=== PATIENT | female | born 1945 | race Caucasian/White ===

== ENCOUNTER → 2024-10-07 11:55 | Outpatient (CLI) | payer MEDICARE, SELFPAY ==
--- NOTE | 2024-10-07 11:56 | DI.CT.S_ITS ---
PROCEDURE: CT SINUS SCREEN WO CON INDICATIONS: malignant melanoma of nasal cavity TECHNIQUE: Noncontrast 3.0 mm axial images acquired from the frontal sinuses to the mid- sella, with coronal and sagittal reformats. For radiation dose reduction, the following was used: automated exposure control, adjustment of mA and/or kV according to patient size. COMPARISON: None. FINDINGS: Image quality: Excellent. Sinuses: There is significant soft tissue density within the left maxillary sinus extending to the ethmoid air cells as well as frontal sinus and sphenoid sinus. It appears more masslike in the anterior aspect of the left maxillary sinus. Somewhat frothy appearance of opacification is present surrounding the inferior right nasal turbinates. Inferior left nasal turbinate is not visualized possibly secondary to resection. Ostiomeatal Complexes: There is complete occlusion expansion of the left ostiomeatal complex. Miscellaneous: Visualized intra-orbital contents are normal. No david bullosa or paradoxical turbinate curvature. No nasal septal deviation. There is a thickened appearance the left lateral maxillary sinus barba. There is osseous thinning within the anterior left maxillary sinus wall. There is expansion of left nostril with patchy areas of soft tissue density. IMPRESSION: Diffuse appearance of soft tissue density within the sinuses most notably on the left. Masslike appearance is present in the anterior aspect of the left maxillary sinus with thinning of the anterior wall. In addition, patchy areas of opacity are present in the left nostril. While portions are likely [employer] mucosal thickening within the left spinous system, the left nostril and anterior aspect of the left mass very sinus raise suspicion for underlying malignancy. Dictated by: Sharmin Salcedo M.D. on 10/08/2024 at 19:58 Approved by: Sharmin Salcedo M.D. on 10/08/2024 at 20:03
--- NOTE | 2024-10-07 11:57 | DI.CT.S_ITS ---
PROCEDURE: CT SOFT TISSUE NECK WO CON INDICATIONS: malignant melanoma of nasal cavity TECHNIQUE: Non-contrast 3.0 mm axial sections acquired from the sella to the aortic arch. Additional oblique axial 3.0 mm sections acquired through the pharynx. 3 mm thick coronal and sagittal reformats were generated. For radiation dose reduction, the following was used: automated exposure control. COMPARISON: [facility], MR, MR ORBITS FACE NECK WO/W CON, 10/07/2024, 12:21. [facility], CT, CT SINUS SCREEN WO CON, 10/07/2024, 12:10. [facility], [place], [place] PET [place] FUSION WHOLE BODY, 09/30/2024, 8:31. Outside Facility, [place], [place] PET CT FUSION WHOLE BODY, 08/05/2019, 16:18. Outside Facility, [place], [place] PET CT FUSION WHOLE BODY, 02/04/2019, 12:43. FINDINGS: Image quality: Excellent. Lymph nodes: No enlarged lymph nodes seen throughout the neck. Vessels: Non-opacified vessels appear normal in caliber. Neck spaces: The oropharynx, nasopharynx, and pharynx demonstrate no mucosal lesions. The vocal cords, false vocal cords, pyriform sinuses, epiglottis, vallecula, and tongue base all appear normal. Extramucosal spaces appear unremarkable. Glands: The submandibular glands appear normal, without stones. Left parotid nodule is present measuring 9 mm. Thyroid gland is unremarkable. . Bones: No aggressive osseous abnormality. No displaced fractures. Miscellaneous: There is scattered areas of sinus mucosal thickening which are most prominent in the left maxillary sinus. In the inferior anterior aspect there is a lobulated soft tissue density extending into the left nasal cavity. It measures approximately 2.2 x 2.4 cm. More inferior and anterior in the nasal cavity are patchy areas of soft tissue density. There is thinning along the superior maxillary wall. As better appreciated on MRI, there is mild compression of the left orbit/medial rectus muscle from the mass. Overall evaluation is somewhat limited without IV contrast. IMPRESSION: Left maxillary sinus mass extending into the left nasal cavity with additional areas of soft tissue density within more anterior aspects the left nasal cavity. Overall appearance remains consistent with given history of malignancy. No adenopathy. Left parotid nodule overall nonspecific. This may be related to both benign and malignant etiologies. FNA may be obtained. Dictated by: Sharmin Salcedo M.D. on 10/10/2024 at 11:49 Approved by: Sharmin Salcedo M.D. on 10/10/2024 at 11:54
--- NOTE | 2024-10-07 11:58 | DI.MRI.S_ITS ---
PROCEDURE: MR ORBITS FACE NECK WO/W CON INDICATIONS: malignant melanoma of nasal cavity TECHNIQUE: Noncontrast sagittal T1 spin echo, axial FLAIR, axial gradient echo, axial diffusion and ADC acquired through the brain. Coronal STIR, thin-slice axial T1 spin echo through the orbits. After the administration of contrast, thin-slice axial and coronal T1 spin echo with fat saturation through the orbits, axial and coronal and sagittal T1 spin echo with fat saturation through the brain. COMPARISON: None. FINDINGS: Image quality: Excellent. Orbits: There is extrinsic compression upon the left orbit and medial rectus extra-ocular muscle from a known mass centered in the left nasal cavity and maxilla. Otherwise, the globes are symmetrical. The optic nerves are normal in size, without abnormal signal or enhancement. No retrobulbar masses or fat abnormalities. The extra-ocular muscles are normal and symmetric in appearance. Lacrimal glands are normal. Optic chiasm is normal. Periorbital soft tissues appear normal. CSF spaces: Ventricles are normal in size and shape. Basal cisterns are patent. No extra-axial fluid collections. Brain: No intracranial bleeds or mass effects. No abnormal intracranial enhancement. There is moderate chronic microvascular ischemic change throughout the subcortical and periventricular deep white matter. Mild age-appropriate cerebral atrophy. Diffusion weighted images demonstrate no acute ischemic insults. Pituitary gland appears normal, without sellar or suprasellar masses. Brainstem appears normal. Normal intravascular flow voids are present. Skull and face: Calvarial marrow is normal in signal. Sinuses: There is diffuse abnormal mucosal nodular enhancement throughout the left nasal cavity and left maxilla with enhancing lobular mass centered in the left maxilla measuring 2.5 cm in maximum sagittal extent. There are postsurgical changes of the left maxillary sinus. There is subtotal opacification of the left sphenoid sinus with a briskly enhancing nodular pattern. The lobular mass centered in the left maxilla extends to the left nasal cavity with occlusion of the left frontal ethmoidal recess. There is fluid in the left mastoid air cells. IMPRESSION: 1. Diffuse lobular soft tissue enhancement throughout the left maxillary cavity and nasal cavity with extension to the sphenoid sinus consistent with known primary malignancy with concordant findings by PET CT imaging on 10/02/2024. 2. There is extrinsic compression upon the left orbit and medial rectus muscle from the primary malignancy which extends throughout the left maxillary sinus and nasal cavity. Dictated by: Flor Rendon M.D. on 10/07/2024 at 14:12 Approved by: Flor Rendon M.D. on 10/07/2024 at 14:24
== END ==
LOC: CT 09-30 07:10 → MRI 11:55
PROVIDERS: Referring Provider Otolaryngology; Visit Provider Otolaryngology
DX: C30.0 Malignant neoplasm of nasal cavity (principal); K11.9 Disease of salivary gland, unspecified
CPT/HCPCS: 70486; 70490; 70543; A9579